=== PATIENT | female | born 1990 | race Caucasian/White ===

== ENCOUNTER → 2019-06-22 | Outpatient (CLI) | payer MEDICAID ==
--- NOTE | 2019-06-22 15:58 | RADIOLOGY REPORT (SQ) ---
EXAM DESCRIPTION: U/S [id number] TRNABD 1GES W/ODOP COMPLETED DATE/TIME: 06/22/2019 3:29 pm REASON FOR STUDY: Z34.01 ENCNTR FOR SUPRVSN OF NORMAL FIRST PREG, FIRST TRIMESTER Z34.01 ENCNTR FOR SUPRVSN OF NORMAL FIRST PREG, FIRST TRIMES COMPARISON: None. TECHNIQUE: Transabdominal static and realtime grayscale images acquired of the pelvis. Additional se lected spectral and color Doppler images recorded. All images stored on PACs. bHCG: Not available. CLINICAL DATES: LMP 03/23/2019. 13 weeks 0 days LIMITATIONS: None. FINDINGS: FETUS: Single Living intrauterine . ULTRASOUND EGA: 12 weeks 6 days ULTRASOUND MELANIE: 12/29/2019 EFW: Not applicable less than 20 weeks. CRL: 6.4 cm. FHR: 163 beats per minute. SURVEY: Too early to assess. AMNIOTIC FLUID: Adequate amount. PLACENTA: Not yet developed due to early gestation. SUBCHORIONIC BLEED: No SIZE OF BLEED: Not applicable. UTERUS: No masses. No anomalies. CERVICAL LENGTH: 2.8 cm. Closed. RIGHT ADNEXA: Normal ovary with normal vascular flow. 2.8 x 2.2 x 2.1 cm. No adnexal free fluid. No adnexal masses. LEFT ADNEXA: Normal ovary with normal vascular flow. 2.2 x 2.2 x 2.4 cm. No adnexal free fluid. No adnexal masses. FREE FLUID: None. OTHER: No other significant finding. IMPRESSION: LIVING INTRAUTERINE . EGA 12 weeks 6 days Trimester of : First trimester - 0 to 13 weeks. TECHNICAL DOCUMENTATION: JOB ID: [id number]- All Rights Reserved rev-12/20 Reading location - IP/workstation name: [email or web address]
== END ==
LOC: RAD 14:45
PROVIDERS: ATTEND Midwife
DX: Z34.01 Encounter for supervision of normal first pregnancy, first trimester (principal); Z3A.12 12 weeks gestation of pregnancy
CPT/HCPCS: 76801

== ENCOUNTER 2019-10-08 10:19 | Observation (INO) | payer MEDICAID ==
[2019-10-08] MEDS ORDERED: NIFEDIPINE 10 MG CAPSULE PO ONE ×2 (10:47→12:00)
[2019-10-08] MEDS ORDERED: NIFEDIPINE 10 MG CAPSULE ONE ×2 (10:49→12:01)
[2019-10-08 11:02] LABS: ABSOLUTE EOSINOPHILS # (AUTO) 0.2 10^3/uL (0.0-0.6); ABSOLUTE LYMPHOCYTES (AUTO) 1.3 10^3/uL (0.5-4.7); ABSOLUTE MONOCYTES (AUTO) 0.6 10^3/uL (0.1-1.4); ABSOLUTE NEUT (AUTO) 3.7 10^3/uL (1.7-8.2); BASOPHILS % (AUTO) 0.4 % (0-2); EOSINOPHILS % (AUTO) 2.6 % (0-6); HEMATOCRIT 38.3 % (36.0-47.0); HEMOGLOBIN 13.2 g/dL (12.0-15.5); LYMPHOCYTES % (AUTO) 22.4 % (13-45); MEAN CORPUSCULAR HEMOGLOBIN 29.3 pg (27.0-33.4); MEAN CORPUSCULAR HGB CONC 34.5 g/dL (32.0-36.0); MEAN CORPUSCULAR VOLUME 85 fl (80-97); MONOCYTES % (AUTO) 10.5 % (3-13); PLATELET COUNT 141 10^3/uL (150-450); RED BLOOD COUNT 4.52 10^6/uL (3.72-5.28); RED CELL DISTRIBUTION WIDTH 13.6 % (11.5-14.0); SEGMENTED NEUTROPHILS % (AUTO) 64.1 % (42-78); TOTAL CELLS COUNTED % (AUTO) 100 %; WHITE BLOOD COUNT 5.8 10^3/uL (4.0-10.5)
[2019-10-08 11:12] LABS: APPEARANCE,URINE SLIGHTLY-CLOUDY; BILIRUBIN,URINE NEGATIVE (NEGATIVE); COLOR,URINE YELLOW; GLUCOSE, URINE NEGATIVE (NEGATIVE); KETONES,URINE NEGATIVE (NEGATIVE); LEUKOCYTE ESTERASE,URINE NEGATIVE (NEGATIVE); NITRITE,URINE NEGATIVE (NEGATIVE); PROTEIN,URINE NEGATIVE (NEGATIVE); URINE SPECIFIC GRAVITY 1.008; UROBILINOGEN,URINE NEGATIVE mg/dL (<2.0)
[2019-10-08 11:24] LABS: ALBUMIN 3.2 g/dL (3.5-5.0); ALKALINE PHOSPHATASE 85 U/L (38-126); ANION GAP 6 (5-19); ASPARTATE AMINO TRANSFERASE 23 U/L (14-36); BILIRUBIN,DIRECT 0.2 mg/dL (0.0-0.4); BILIRUBIN,TOTAL 0.2 mg/dL (0.2-1.3); BLOOD UREA NITROGEN 13 mg/dL (7-20); CALCIUM 9.6 mg/dL (8.4-10.2); CARBON DIOXIDE 23 mmol/L (22-30); CHLORIDE 105 mmol/L (98-107); GLUCOSE 82 mg/dL (75-110); POTASSIUM 4.9 mmol/L (3.6-5.0); TOTAL PROTEIN 6.1 g/dL (6.3-8.2); URIC ACID 4.6 mg/dL (2.5-6.2)
[2019-10-08 11:27] LABS: URINE AMPHETAMINES SCREEN NEGATIVE; URINE BARBITURATES SCREEN NEGATIVE; URINE BENZODIAZEPINES SCREEN NEGATIVE; URINE COCAINE SCREEN NEGATIVE; URINE MARIJUANA (THC) SCREEN NEGATIVE; URINE METHADONE SCREEN NEGATIVE; URINE PHENCYCLIDINE SCREEN NEGATIVE
[2019-10-08 11:31] LABS: UR PRO/CREAT RATIO RESULT 0.7 mg/mg (0.0-0.2); URINE CREATININE 44.5 mg/dL (16-327)
[2019-10-08] MEDS ORDERED: HYDRALAZINE HCL INJ/PF 20 MG/1 ML SDV IV ONE ×4 (13:05→21:00)
[2019-10-08] MEDS ORDERED: RINGERS SOLUTION,LACTATED 1,000 ML IV PRN (13:05)
[2019-10-08] MEDS ORDERED: HYDRALAZINE HCL INJ/PF 20 MG/1 ML SDV ONE (13:07)
[2019-10-08] MEDS ORDERED: NIFEDIPINE 30 MG TAB.ER.24 PO ONE (14:10)
[2019-10-08] MEDS ORDERED: NIFEDIPINE 30 MG TAB.ER.24 PO SCH (15:00)
[2019-10-08] MEDS ORDERED: ACETAMINOPHEN 325 MG TABLET PO ONE (15:09)
--- NOTE | 2019-10-08 15:09 | Admission Physical ---
Datetime Report Generated by CPN: 10/08/2019 15:08 CURRENT ADMISSION Chief Complaint: Signs/Symptoms Gestational HTN Indication for Induction: Not Applicable Admit Impression : , Intrauterine Admit Plan: Observation/Evaluation ALLERGIES Medication Allergies: No Medication Allergies: No Known Allergies (10/08/2019) Latex: No Latex Allergies OBSTETRICAL HISTORY : 1 Para: 0 SEE RECORDS Alcohol: No Marijuana : No Cocaine: No Other Illicit Drugs: No Cigarettes: Never Smoker. [id number] PHYSICAL EXAM General: Normal HEENT: Normal Neurologic: Normal Thyroid: Deferred Heart: Normal Lungs: Normal Breast: Deferred Back: Normal Abdomen: Normal Genitourinary Exam: Normal Extremities: Normal DTRs: Normal Pelvic Type: Adequate Vital Signs: Reviewed Details Vital Signs: severe range BP VAGINAL EXAM Contraction Comments: very rare MEMBRANES Membranes: Intact FETUS A Monitoring: External US FHR- Baseline: 155 Variability: Moderate 6-25bpm Accelerations: 15X15 Decelerations: None FHR Category: Category I Admit Comment: at 28w with CHTN. asthma as a child. first severe range BP today. sent from office where she had 1h gtt and did not pass. she has been denying any symptoms until 1h ago she developed a headache-she thinks it is because she has not eaten in several hours. she is calling her to bring her food. since 1044 today, she has received prodardia immediate release 10mg x 2 doses, hydralazine 5mg IV x3 and procardia XL 30mg. will observe overnight for BP control and 24h urine collection for protein. INFORMED CONSENT Assignment: Carter Garcias MD Signature: with User ID: [email or web address] : with User ID: [email or web address]
[2019-10-08] MEDS ORDERED: LABETALOL HCL 200 MG TABLET PO ONE (15:20)
[2019-10-08] MEDS ORDERED: LABETALOL HCL 200 MG TABLET ONE (15:21)
[2019-10-08] MEDS ORDERED: ACETAMINOPHEN 325 MG TABLET ONE (16:42)
--- NOTE | 2019-10-08 17:50 | PDOC TRANSFER SUMMARY ---
General Admission Date/PCP: 10/08/19 15:02 ARTEMIO MCINTYRE CNM - Transfer Diagnosis (1) Chronic hypertension affecting Is this a current diagnosis for this admission?: Yes - Transfer Medications Home Medications: Aspirin [Aspirin 81 mg Chewable Tablet] 1 tab PO DAILY 10/08/19 Diphenhydramine HCl [Benadryl] 25 mg PO PRN PRN 10/08/19 Vit/Dha [ Multi + Dha Capsule] 1 cap PO DAILY 10/08/19 Transfer Medications: Current Medications Lactated Ringer's (Lactated Ringers 1000 Ml Iv Soln) 1,000 mls @ 50 mls/hr IV CONTINUOUS PRN PRN Reason: THIS MED IS NOT "PRN" Stop: 11/07/19 13:04 Nifedipine (Procardia Xl 30 Mg Tablet) 30 mg PO Q12A ALY Stop: 11/07/19 14:59 - Allergies Allergies/Adverse Reactions: No Known Allergies Allergy (Verified 10/08/19 10:28) Physical Exam Vital Signs: Intake & Output 10/07/19 10/08/19 10/09/19 06:59 06:59 06:59 Weight 111.7 kg General appearance: PRESENT: no acute distress Respiratory exam: PRESENT: clear to auscultation kristy Cardiovascular exam: PRESENT: RRR GI/Abdominal exam: PRESENT: soft Results Laboratory Results: 10/08/19 10:46 10/08/19 10:46 10/08/19 10/08/19 10/08/19 10:26 10:46 10:46 WBC 5.8 RBC 4.52 Hgb 13.2 Hct 38.3 MCV 85 MCH 29.3 MCHC 34.5 RDW 13.6 Plt Count 141 L Seg Neutrophils % 64.1 Sodium 133.8 L Potassium 4.9 Chloride 105 Carbon Dioxide 23 Anion Gap 6 BUN 13 Creatinine 0.50 L Est GFR ( Amer) > 60 Glucose 82 Uric Acid 4.6 Calcium 9.6 Total Bilirubin 0.2 AST 23 Alkaline Phosphatase 85 Total Protein 6.1 L Albumin 3.2 L Urine Color YELLOW Urine Appearance SLIGHTLY-CLOUDY Urine pH 6.0 Ur Specific Joffre 1.008 Urine Protein NEGATIVE Urine Glucose (UA) NEGATIVE Urine Ketones NEGATIVE Urine Blood NEGATIVE Urine Nitrite NEGATIVE Ur Leukocyte Esterase NEGATIVE Urine WBC (Auto) 1 Urine RBC (Auto) 0 Plan Discharge Plan: pt is a G1 at 28 weeks with history of chronic hypertention with possible supraimposed pre-eclamsia or atypical HTN. Pt transferred for possible tertiaty NICU care Time Spent: Greater than 30 Minutes
--- NOTE | 2019-10-08 17:55 | Discharge Summary ---
Discharge Summary (SDC) - Discharge Final Diagnosis: IUP 28weeks chronic hypertention possible pre-eclamsia Discharge Date: 10/08/19 Condition: Fair Treatment or Instructions: transfer to [facility] Referrals: ARTEMIO MCINTYRE CNM [Primary Care Provider] - Discharge Activity: Activity As Tolerated Report the Following to Your Physician Immediately: Weight Gain 2-3lbs a day, Seizure
== END 2019-10-08 20:51 | disposition short-term general hospital (02) ==
LOC: LC 10:19 → LR 15:02
PROVIDERS: ADMIT Obstetrics & Gynecology Gynecology; ATTEND Obstetrics & Gynecology Gynecology
DX: O10.913 Unspecified pre-existing hypertension complicating pregnancy, third trimester (principal); O26.893 Other specified pregnancy related conditions, third trimester; Z67.91 Unspecified blood type, Rh negative; Z3A.28 28 weeks gestation of pregnancy; Z79.82 Long term (current) use of aspirin
CPT/HCPCS: 36415; 83615; 84156; 84550; 82570; 85025; 80053; 81001; 80307; 59899; J0360; J3490 ×3